=== PATIENT | male | born 1985 | race Two or more races ===

== ENCOUNTER 2019-04-25 17:58 | Emergency (ER) | payer SELFPAY ==
[~2019-04-25] VITALS: Ht 172.7 cm; Wt 86.0 kg
[2019-04-25] MEDS ORDERED: FOLIC ACID 1 MG, THIAMINE HCL 100 MG, MVI, ADULT NO.1 10 ML in DEXTROSE 5% WATER 1,000 ML IV ONE ×4 (20:00)
[2019-04-25 20:30] VITALS: BP 122/72
[2019-04-25 20:36] LABS: BASOPHILS % 0.5 % (0.0-2.0); EOSINOPHILS % 0.3 % (0.0-5.0); HEMATOCRIT. 45.9 % (42.0-52.0); HEMOGLOBIN. 15.4 g/dL (14.0-18.0); LYMPHOCYTES % 40.9 % (20.0-50.0); MEAN CORPUSCULAR HEMOGLOBIN 30.4 pg (28.0-32.0); MEAN CORPUSCULAR VOLUME 90.8 fL (80.0-94.0); MEAN PLATELET VOLUME 7.4 fl (7.4-10.4); MONOCYTES % 7.2 % (2.0-8.0); NEUTROPHILS % 51.1 % (40.0-76.0); PLATELET 260 x1000/uL (130-400); RED BLOOD CELL COUNT 5.05 mill/uL (4.7-6.1); RED CELL DISTRIBUTION WIDTH 14.4 % (11.6-14.6)
[2019-04-25 20:39] LABS: CHLORIDE 106 mEq/L (98-107)
[2019-04-25 20:54] LABS: ETHANOL BLOOD 454 mg/dL
== END 2019-04-25 21:50 | disposition left against medical advice (07) ==
LOC: ER 17:58
DX: T51.0X1A Toxic effect of ethanol, accidental (unintentional), initial encounter (principal); G92 Toxic encephalopathy; Y90.8 Blood alcohol level of 240 mg/100 ml or more; V47.0XXA Car driver injured in collision with fixed or stationary object in nontraffic accident, initial encounter; Y93.89 Activity, other specified; Y92.488 Other paved roadways as the place of occurrence of the external cause; Y92.89 Other specified places as the place of occurrence of the external cause
CPT/HCPCS: 36415; 71045; 80048; 80307; 80320; 80329; 85025; 99284; J3411; J3490; J7070; G0480